=== PATIENT | female | born 1970 | race Caucasian/White ===

== ENCOUNTER → 2018-12-15 06:16 | Outpatient (CLI) | payer OTHER, SELFPAY ==
[2018-12-15 08:33] LABS: AST(SGOT) 21 U/L (15-37); Cholesterol 206 mg/dL (200); High Density Lipoprotein 61 mg/dL; Triglycerides 101 mg/dL; Very Low Density Lipoprotein 20 mg/dL (5-40)
== END ==
PROVIDERS: Family Provider Family Medicine; PCP Family Medicine
DX: E78.2 Mixed hyperlipidemia (principal)
CPT/HCPCS: 36415; 80061; 84450

== ENCOUNTER → 2018-12-25 12:52 | Outpatient (CLI) | payer OTHER, SELFPAY ==
--- NOTE | 2018-12-25 15:47 | BRONCHALL ---
Bronchoprovocation Challenge - Bronchoprovocation Challenge Bronchoprovocation Challenge: BRONCHOPROVOCATION STUDY INTERPRETATION Brief HPI: Patient is a 48 year old female, currently under the care of Dr. Ramirez, who presents to [facility] for a bronchoprovocation study secondary to diagnosis of dyspnea. Respiratory therapist reports good effort and reproducible results. Interpretation: Initial spirometry showed no large airways obstructive ventilatory defect. The patient was then given increasingly concentrated doses of methacholine in a stepwise fashion, using a modified ATS protocol. The patient had a significant reduction in FEV1 by 25% and a calculated PD20 of 0.023. Impression: Positive for response noted in a range consistent with the diagnosis of asthma.
--- NOTE | 2018-12-25 15:51 | BRONCHALL_ITS ---
Bronchoprovocation Challenge - Bronchoprovocation Challenge Bronchoprovocation Challenge: BRONCHOPROVOCATION STUDY INTERPRETATION Brief HPI: Patient is a 48 year old female, currently under the care of Dr. Ramirez, who presents to [facility] for a bronchoprovocation study secondary to diagnosis of dyspnea. Respiratory therapist reports good effort and reproducible results. Interpretation: Initial spirometry showed no large airways obstructive ventilatory defect. The patient was then given increasingly concentrated doses of methacholine in a stepwise fashion, using a modified ATS protocol. The patient had a significant reduction in FEV1 by 25% and a calculated PD20 of 0.023. Impression: Positive for response noted in a range consistent with the diagnosis of asthma.
== END ==
PROVIDERS: Family Provider Family Medicine; PCP Family Medicine
DX: R06.02 Shortness of breath (principal)
CPT/HCPCS: 94070; 95070; J3490; J7674

== ENCOUNTER → 2019-06-11 06:18 | Outpatient (CLI) | payer OTHER, SELFPAY ==
[2019-02-19 09:42] VITALS: BMI 23.0
[2019-06-11 07:37] LABS: Cholesterol 256 mg/dL (200); Estradiol 29.3 pg/mL; Free T3 4.5 pg/mL (2.18-3.98); High Density Lipoprotein 66 mg/dL; Thyroid Stim Hormone (TSH) 0.58 uIU/mL (0.358-3.74); Triglycerides 79 mg/dL; Very Low Density Lipoprotein 16 mg/dL (5-40)
[2019-06-11 10:18] LABS: Insulin 8.1 mU/L (2.6-37.6); Progesterone Level 68.61 ng/mL (See Comment)
[2019-06-14 12:06] LABS: Testosterone, Total 315 ng/dL (8-48)
[2019-06-14 13:49] LABS: DHEA Sulfate 119.6 ug/dL (41.2-243.7)
== END ==
PROVIDERS: Family Provider Family Medicine; PCP Family Medicine
DX: E78.2 Mixed hyperlipidemia (principal); N95.9 Unspecified menopausal and perimenopausal disorder; E03.9 Hypothyroidism, unspecified
CPT/HCPCS: 36415; 80061; 82627; 82670; 83525; 84144; 84402; 84403; 84443; 84481; 82626

== ENCOUNTER → 2019-09-03 06:11 | Outpatient (CLI) | payer OTHER, SELFPAY ==
[2019-02-19 09:42] VITALS: BMI 23.0
[2019-09-03 09:34] LABS: Insulin 11.7 mU/L (2.6-37.6); Progesterone Level 21.41 ng/mL (See Comment)
== END ==
LOC: LAB.FUTURE 06:14 → LAB 06:17
PROVIDERS: Family Provider Family Medicine; PCP Family Medicine
DX: R63.5 Abnormal weight gain (principal)
CPT/HCPCS: 36415; 82670; 83525; 84144

== ENCOUNTER → 2019-10-13 15:39 | Outpatient (CLI) | payer OTHER, SELFPAY ==
[2019-02-19 09:42] VITALS: BMI 23.0
--- NOTE | 2019-10-13 15:42 | BI_ITS ---
MAMMOGRAPHY - BILATERAL SCREENING REASON FOR EXAM: Female, 49 years old. Routine annual screening examination. PERTINENT HISTORY: Non-contributory. TECHNIQUE: Digital bilateral breast kenna (3D mammographic acquisition) in the CC and MLO projections. 2-D mediolateral oblique (MLO) and craniocaudad (CC) views of both breasts were obtained. CAD: Full Field Digital Mammography with Computer Added Detection was performed. COMPARISON: Comparison is made with prior outside examination dated May 07, 2018. FINDINGS: Breast Composition: The breasts are heterogeneously dense, which may obscure small masses. There are no dominant masses or suspicious calcifications. No other significant abnormalities are identified. There has been no significant change since the prior study. BI/SCREEN MAMM (CAD) W/KENNA BILAT IMPRESSION: Stable bilateral screening mammogram. Yearly follow-up mammogram recommended. (A) ASSESSMENT CATEGORY: BIRADS Category 1: Negative. A letter regarding these results will be sent to the patient by the facility within 30 days. Approximately 10% of breast cancers are not detected by mammography. A normal mammogram should not delay biopsy of a clinically suspicious abnormality. [id number] Electronically Signed: Juan Rodgers, at 14:28 EST , Service support ,
== END ==
PROVIDERS: Family Provider Family Medicine; PCP Family Medicine; Referring Provider Nurse Practitioner Family; Visit Provider Nurse Practitioner Family
DX: Z12.31 Encounter for screening mammogram for malignant neoplasm of breast (principal)
CPT/HCPCS: 77063; 77067

== ENCOUNTER → 2019-12-29 14:25 | Outpatient (CLI) | payer OTHER, SELFPAY ==
[2019-12-10 13:49] VITALS: BMI 23.6
[2019-12-29 09:05] LABS: Anion Gap 7 (5-15); BUN 11 mg/dL (7-18); BUN/Creat Ratio 13.4 RATIO (10-20); Calcium,Total 9.2 mg/dL (8.5-10.1); Chloride 109 mmol/L (98-107); Creatinine, Serum 0.82 mg/dL (0.55-1.02); EST Glomerular Filtration Rate 78 mL/min (>60); Est Glom Filt Rate - Afr Amer 95 mL/min (>60); Glucose 86 mg/dL (74-106); Potassium 3.8 mmol/L (3.5-5.1); Sodium Level 140 mmol/L (136-145)
--- NOTE | 2019-12-29 14:35 | CT_ITS ---
STUDY: CTA CORONARY REASON FOR EXAM: Female, 49 years old. FAMILY HISTORY OF CAD FOR OVER READ ONLY RADIATION DOSAGE (If Supplied By Facility): CTDIvol = ( 70.9 ) mGy, DLP = ( 1009.99 ) mGycm TECHNIQUE: Tomographic images were obtained of the heart and chest with a 64 detector row scanner using slice thicknesses of less than 1 mm. Post-processing of the angiographic images was performed, with multiplanar reformation and 3D reconstruction. Individualized dose optimization techniques were used for this CT. TECHNICAL QUALITY: Excellent COMPARISON: None. CORONARY ANGIOGRAPHY: Coronary CT Angiogram Descriptors of Atherosclerosis: Stenosis: None (0%) Mild (< 50%) Moderate (50-70%) Severe (70-90%) Subtotal/Total Occlusion (90-100%) Non-Evaluable Plaque Characteristics: None Non-Calcified (Soft) Calcified Mixed FINDINGS: LEFT MAIN CORONARY ARTERY: Left Main Coronary Artery CT Angiogram: Free of significant atherosclerosis. LEFT ANTERIOR DESCENDING ARTERY: Left Anterior Descending (LAD) Coronary Artery CT Angiogram: Proximal 1/3: Free of significant atherosclerosis. Middle 1/3: Free of significant atherosclerosis. Distal 1/3: Free of significant atherosclerosis. 1st Diagonal Branch: Free of significant atherosclerosis. 2nd Diagonal Branch: Free of significant atherosclerosis. LEFT CIRCUMFLEX ARTERY: Left Circumflex (LCx) Coronary Artery CT Angiogram: Proximal 1/2: Free of significant atherosclerosis. Distal 1/2: Free of significant atherosclerosis. High Lateral Branches: Free of significant atherosclerosis. Obtuse Marginal Branches: Free of significant atherosclerosis. I-L Branches: NA. PDA: NA. RIGHT CORONARY ARTERY: Right Coronary Artery (RCA) CT Angiogram: Proximal 1/3: Free of significant atherosclerosis. Middle 1/3: Free of significant atherosclerosis. Distal 1/3: Free of significant atherosclerosis. PDA: Free of significant atherosclerosis. I-L Branches: Free of significant atherosclerosis. CORONARY ARTERY DOMINANCE: Right CORONARY ARTERY BYPASS GRAFTS: None. NONCORONARY CARDIAC STRUCTURE: CARDIAC CHAMBERS: Normal CARDIAC VALVES: Normal. PERICARDIUM: Normal. GREAT VESSELS: Normal. MYOCARDIAL PERFUSION: There are no myocardial perfusion abnormalities demonstrated. VISUALIZED LUNG PARENCHYMA, MEDIASTINUM AND CHEST WALL: Normal. IMPRESSION: Normal examination free of significant atherosclerosis. Electronically Signed: Garcia Otto, at 7:18 EST Tel , Service support , STUDY: CARDIAC CALCIUM SCORING - CT CHEST REASON FOR EXAM: Female, 49 years old. FAMILY HISTORY OF CAD FOR OVER READ ONLY RADIATION DOSAGE (If Supplied By Facility): CTDIvol = ( 70.9 ) mGy, DLP = ( 1009.99 ) mGycm TECHNIQUE: Axial non-enhanced images were acquired through the heart for the sole purpose of measuring coronary artery calcium. Individualized dose optimization techniques were used for this CT. COMPARISON: None. FINDINGS: Visualized surrounding anatomy: Normal. Left Main Coronary Artery: There is no coronary artery calcification . Left Anterior Descending Artery: There is no coronary artery calcification . Left Circumflex Artery: There is no coronary artery calcification . Right Coronary Artery: There is no coronary artery calcification . Total Calcium Score: 0 CT/Limited Chest CT w/CCTA IMPRESSION: No coronary artery calcification. Electronically Signed: Garcia Steinbergassen, at 7:21 EST Tel , Service support ,
[2019-12-29 14:40] VITALS: BP 108/48; PULSE 71; RESP 16; O2SAT 97; BMI 23.9
[2019-12-29] MEDS: Nitroglycerin SL (ED/IMG/CATH) 0.4 MG TABLET SUBLINGUAL (14:57)
[2019-12-29 15:03] VITALS: BP 122/60; PULSE 79; RESP 16; O2SAT 95
--- NOTE | 2019-12-29 17:05 | CA.SCORE ---
Calcium Scoring Date of Study:: 12/29/19 Coronary Calcium Scoring: High-resolution Computed Tomographic imaging of the chest was performed on 12/29/2019 with particular attention paid to the coronary arteries. Images from the examination were analyzed for the presence and extent of coronary artery calcification , using coronary calcium quantification software. The patient tolerated the procedure well and there were no complications. The results of the coronary calcification analysis are provided below. - Findings Left Main (LM): 0 Left Anterior Descending (LAD): 0 Left Circumflex (LCX): 0 Right Coronary Artery (RCA): 0 Total Agatston Score: 0 Percentile Ranking: Percentile rankin%: Based upon pre-published data 50% of patients of the same gender/similar age had the same/lower scores Calcium Scoring Interpretation: 0 No identifiable atherosclerotic plaque. Very low cardiovascular disease risk. <5% chance of presence coronary artery disease A Negative Examination 1-10 Minimal Plaque burden. Significant coronary artery disease very unlikely. 11-100 Mild plaque burden. Likely mild or minimal coronary atherosclerosis. 101-400 Moderate plaque burden Moderate non-obstructive coronary artery disease highly likely. Over 400 Extensive plaque burden. High likelihood of at least one significant coronary stenosis (>50% diameter) Calcium Score: 0 Negative Examination - Continue cardiovascular evaluation and care as deemed appropriate.
--- NOTE | 2019-12-29 17:17 | CCTA.WCONT ---
CCTA w/Cont Coronary Arteries Date of Study:: 12/29/19 Family history of premature CAD High resolution CT imaging of the chest was performed on 12-21-2019 with attention to the coronary arteries. The images were subsequently analyzed for the presence and extent of coronary artery calcification using coronary calcium quantification software. The patient was reported as tolerating the procedure well with no obvious complications. LEFT MAIN CORONARY ARTERY: The left main coronary artery appears to be a large vessel giving rise to the left anterior descending and left circumflex coronary arteries. The left main coronary artery demonstrates no angiographically significant appearing disease. LEFT ANTERIOR DESCENDING CORONARY ARTERY: Left anterior descending coronary artery appears to be a large artery coursing toward the LV apex giving rise to a septal principal java software engineer system and a diagonal branching system. The LAD system demonstrates no angiographically significant appearing disease. LEFT CIRCUMFLEX CORONARY ARTERY: The left circumflex coronary artery is potentially a codominant system. The left circumflex coronary artery demonstrates no angiographically significant appearing disease. RIGHT CORONARY ARTERY: The right coronary artery is potentially a codominant system. The right coronary artery demonstrates no angiographically significant appearing disease. THORACIC AORTA: The thoracic aorta appears to be patent with no angiographically significant appearing disease. PULMONARY ARTERY: The main pulmonary artery and proximal portions of the right and left pulmonary artery appear to be patent with no obvious filling defects. LEFT ATRIUM/APPENDAGE: The left atrial appendage and straits no obvious filling defects. MITRAL VALVE: The mitral valve appears to be a bileaflet valve. AORTIC VALVE: The aortic valve appears to be a trileaflet valve. LEFT VENTRICLE: The left ventricle appears to demonstrate grossly normal left ventricular size, wall motion, and systolic function with a reported LVEF of 66%. CORONARY CALCIUM SCORE: The coronary calcium score is reported as 0 which based on pre-published reference table suggests less than 5% chance of the presence of underlying CAD and a very low cardiovascular disease risk. The coronary calcium score is reported at 0 which according to pre-published reference tables indicates that 50% of patients with the same gender/similar age had the same/lower scores. This note was generated using a voice recognition system and there may be incorrect words, spelling or punctuation that were not noted when reviewing the office note prior to saving.
== END ==
PROVIDERS: Family Provider Family Medicine; PCP Family Medicine
DX: Z82.49 Family history of ischemic heart disease and other diseases of the circulatory system (principal)
CPT/HCPCS: 36415; 75571; 75574; 76380; 80048; Q9967; A4216